=== PATIENT | male | born 1960 | race Caucasian/White ===

== ENCOUNTER → 2017-10-09 | Emergency (ER) | payer MEDICARE, OTHER ==
[~2017-10-09] MED LIST: COMBIVENT RESPIM4 GM INH; CYMBALTA30 MG PO; IBUPROFEN800 MG PO; METHADONE HCL10 MG PO; OMEPRAZOLE20 MG PO; OXYCODONE HCL15 MG PO; SEREVENT DISKU1 PUFF INH; VALIUM5 MG PO
--- NOTE | 2017-10-09 10:53 | EKG ---
[facility] [address] [facility] [place] [address] Signed Sinus tachycardia Indeterminate axis Right ventricular hypertrophy Abnormal ECG No previous ECGs available Confirmed by KISHORE SHELLEY MD ([id number]) on 10/09/2017 10:53:01 AM Electronically Signed By: KISHORE SHELLEY MD 10/09/17 1053 PATIENT NAME: HUGH NEVILLE Electrocardiogram DATE OF : 56 PHYSICIAN: KISHORE SHELLEY MD REPORT #: [id number] REPORT IS CONFIDENTIAL AND NOT TO BE RELEASED WITHOUT AUTHORIZATION
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
== END ==
LOC: ED 00:55
DX: S22.43XA Multiple fractures of ribs, bilateral, initial encounter for closed fracture (principal); S27.0XXA Traumatic pneumothorax, initial encounter; S27.892A Contusion of other specified intrathoracic organs, initial encounter; F10.129 Alcohol abuse with intoxication, unspecified; F11.90 Opioid use, unspecified, uncomplicated; R46.89 Other symptoms and signs involving appearance and behavior; K21.9 Gastro-esophageal reflux disease without esophagitis; J44.9 Chronic obstructive pulmonary disease, unspecified; F41.9 Anxiety disorder, unspecified; F17.200 Nicotine dependence, unspecified, uncomplicated; Z88.8 Allergy status to other drugs, medicaments and biological substances; Z79.899 Other long term (current) drug therapy; V47.5XXA Car driver injured in collision with fixed or stationary object in traffic accident, initial encounter
CPT/HCPCS: 70450; 71045; 71260; 72125; 73060; 73560; 74177; 80053; 81001; 83605; 83690; 84484; 85025; 86850; 86900; 86901; 93005; 93010; 96374; 96375; 99291; G0390; G0480; J2060; J2250; J2405; J3010; Q9967